=== PATIENT | male | born 1970 | race Two or more races ===

== ENCOUNTER → 2017-05-09 | Outpatient (CLI) | payer MEDICARE, MEDICAID ==
[~2017-05-09] MED LIST: CARB400T3 PO; DIVA500T4 PO; GABA600T2 PO; LACT20SO13 PO; LEVO88TA2 PO; LISI-167 PO; PRAV40TA2 PO; TOPI100T39 PO
[2017-05-09 15:08] LABS: ALANINE AMINOTRANSFERASE 22 U/L (12-78); ALBUMIN 3.2 g/dL (3.4-5.0); ANION GAP 7 mmol/L (5-15); CALCIUM 8.4 mg/dL (8.5-10.1); CHLORIDE 112 mmol/L (98-107); CREATININE 1.06 mg/dL (0.7-1.3)
[2017-05-09 15:09] LABS: BILIRUBIN, DIRECT < 0.1 mg/dL (0.1-0.2)
[2017-05-09 15:10] LABS: ALKALINE PHOSPHATASE 78 U/L (45-117); BILIRUBIN,INDIRECT 0.2 mg/dL (0.0-2.0); BILIRUBIN,TOTAL 0.3 mg/dL (0.2-1.0); TOTAL PROTEIN 8.8 g/dL (6.4-8.2)
== END | disposition home or self-care (01) ==
LOC: CFH 11:58
PROVIDERS: ATTEND Psychiatry & Neurology Neurology
DX: G40.89 Other seizures (principal)
CPT/HCPCS: 36415; 80069; 80076; 80157; 80164

== ENCOUNTER → 2019-09-09 | Outpatient (CLI) | payer MEDICARE, MEDICAID ==
[~2019-09-09] MED LIST changes: -GABA600T2 PO; +GABA600T7 PO
== END | disposition home or self-care (01) ==
LOC: LAB 09:25
PROVIDERS: ATTEND Physician Assistant
DX: G40.89 Other seizures (principal)
CPT/HCPCS: 36415; 80156; 80164; 80201